=== PATIENT | female | born 1995 | race Caucasian/White ===

== ENCOUNTER 2018-04-16 00:35 | Emergency (ER) | payer SELFPAY ==
[2018-04-16] MEDS: LORAZEPAM 0.5 MG TAB PO (01:40)
== END 2018-04-16 02:22 | disposition home or self-care (01) ==
LOC: FTE 00:35
DX: F41.0 Panic disorder [episodic paroxysmal anxiety] (principal); T50.5X5A Adverse effect of appetite depressants, initial encounter
CPT/HCPCS: 99283; 99283-25

== ENCOUNTER 2018-06-19 16:05 | Emergency (ER) | payer MEDICAID ==
[2018-06-19 18:13] LABS: ADD UMIC YES; UR ASCORBIC ACID NEGATIVE (NEGATIVE); UR BACTERIA FEW /HPF (NONE SEEN); UR BILIRUBIN (Dip) NEGATIVE (NEGATIVE); UR BLOOD (Dip) 1+ mg/dL (NEGATIVE); UR CLARITY CLOUDY (CLEAR); UR COLOR AMBER (YELLOW); UR GLUCOSE (Dip) NEGATIVE (NEGATIVE); UR KETONES (Dip) NEGATIVE (NEGATIVE); UR LEUKOCYTE ESTERASE (Dip) 3+ Leu/ul (NEGATIVE); UR MUCUS MODERATE /HPF (NONE SEEN); UR NITRITE (Dip) NEGATIVE (NEGATIVE); UR RBC 8 /HPF (0-5); UR SPECIFIC GRAVITY (Dip) 1.028 (1.003-1.030); UR SQUAMOUS EPITHELIAL CELL MANY /HPF (FEW); UR TOTAL PROTEIN (Dip) 1+ mg/dl (NEGATIVE); UR UROBILINOGEN (Dip) 2+ mg/dL (NEGATIVE); UR WBC 10 /HPF (0-5)
[2018-06-19] MEDS: FLUCONAZOLE 150 MG TAB PO (18:46)
[2018-06-19] MEDS: ACETAMINOPHEN 500 MG TAB PO (18:46)
[2018-06-19] MEDS: CEPHALEXIN 500 MG CAP PO (18:46)
== END 2018-06-19 18:59 | disposition home or self-care (01) ==
LOC: FTE 16:05
DX: N76.0 Acute vaginitis (principal)
CPT/HCPCS: 81001; 81025; 87591; 99284

== ENCOUNTER 2019-04-25 09:56 | Day surgery (SDC) | payer OTHER ==
[~2019-04-25 09:56] MED LIST: SOD CHLORIDE 0.9% 1,000 ML IV
[2019-04-25 11:28] LABS: ADD MAN DIFF? NO
[2019-04-25 11:31] LABS: BASOPHILS % 0.4 % (0.0-2.0); EOSINOPHILS # 0.1 10^3/ul (0.0-0.5); EOSINOPHILS % 0.8 % (0.0-7.0); HEMATOCRIT 42.2 % (37.0-47.0); HEMOGLOBIN 13.9 g/dl (12.0-16.0); LYMPHOCYTES # 2.9 10^3/ul (0.8-2.9); LYMPHOCYTES % 30.3 % (15.0-51.0); MEAN CORPUSCULAR HEMOGLOBIN 27.7 pg (29.0-33.0); MEAN CORPUSCULAR HGB CONC 32.9 g/dl (32.0-37.0); MEAN CORPUSCULAR VOLUME 84.1 fl (82.0-101.0); MEAN PLATELET VOLUME 10.5 fl (7.4-10.4); MONOCYTE # 0.5 10^3/ul (0.3-0.9); MONOCYTES % 5.4 % (0.0-11.0); NEUTROPHILS % 62.5 % (39.0-77.0); PLATELET COUNT 356 10^3/UL (140-415); RED BLOOD COUNT 5.02 10^6/ul (4.20-5.40); RED CELL DISTRIBUTION WIDTH 13.1 % (11.5-14.5)
[2019-04-25 11:31] LABS: WHITE BLOOD COUNT 9.6 10^3/ul (4.8-10.8)
[2019-04-25 11:38] LABS: ANION GAP 12 (5-13); BLOOD UREA NITROGEN 9 mg/dl (7-20); CALCIUM 9.7 mg/dl (8.4-10.2); CARBON DIOXIDE 25 mmol/L (21-31); CHLORIDE 105 mmol/L (97-110); CREATININE 0.59 mg/dl (0.44-1.00); Estimated GFR > 60 mL/min (>60); GLUCOSE 91 mg/dl (70-220); POTASSIUM 4.3 mmol/L (3.5-5.1); SODIUM 142 mmol/L (135-144)
[2019-04-25 11:50] LABS: INR 0.94; PROTIME 12.7 Sec (11.9-14.9)
[2019-04-25 11:52] LABS: PARTIAL THROMBOPLASTIN TIME 35.9 Sec (23.0-35.0)
[2019-04-25] MEDS ORDERED: LIDOCAINE 2% (SDV) 5 ML INJ (12:23)
[2019-04-25] MEDS ORDERED: PROPOFOL 20 ML (12:23)
[2019-04-25] MEDS ORDERED: ROCURONIUM 50 MG INJ (12:23)
[2019-04-25] MEDS ORDERED: MIDAZOLAM 1 MG/ML 2 ML INJ (12:23)
[2019-04-25] MEDS ORDERED: ROPIVACAINE 0.5 % 30 ML VIAL (12:24)
[2019-04-25] MEDS ORDERED: DIPHENHYDRAMINE 50 MG INJ IV (12:30)
[2019-04-25] MEDS ORDERED: LABETALOL HCL 20MG INJ IV (12:30)
[2019-04-25] MEDS ORDERED: LORAZEPAM 2 MG INJ IV (12:30)
[2019-04-25] MEDS ORDERED: OXYCODONE/ACETAMINOPHEN (5/325) TAB PO ×2 (12:30)
[2019-04-25] MEDS ORDERED: ONDANSETRON 4 MG INJ (13:02)
[2019-04-25] MEDS ORDERED: CEFAZOLIN 1 GM INJ (13:02)
[2019-04-25] MEDS ORDERED: FAMOTIDINE 20 MG INJ (13:02)
[2019-04-25] MEDS: CEFAZOLIN 2 GM/50 ML (PMX) 50 ML IVPB (13:04)
[2019-04-25] MEDS ORDERED: SUGAMMADEX SODIUM 200 MG/2 ML VIAL IV (13:29)
[2019-04-25] MEDS ORDERED: HYDROCODONE/APAP (5/325) TAB PO (13:30)
[2019-04-25] MEDS: HYDROmorphONE 1 MG/5 ML IV SYRINGE IV ×5 (13:52→14:42)
[2019-04-25] MEDS: MEPERIDINE 25 MG INJ IV (14:02)
[2019-04-25] MEDS: ONDANSETRON 4 MG INJ IV (14:02)
== END 2019-04-25 17:15 | disposition home or self-care (01) ==
LOC: SDS 09:56
DX: K80.20 Calculus of gallbladder without cholecystitis without obstruction (principal); K80.10 Calculus of gallbladder with chronic cholecystitis without obstruction
CPT/HCPCS: 47562; 80048; 84703; 85025; 85610; 85730; 88304